=== PATIENT | male | born 1970 | race Caucasian/White ===

== ENCOUNTER → 2022-02-24 12:49 | Outpatient (BNVA) | payer OTHER, SELFPAY | PROVIDERS: PCP Nurse Practitioner Family; Visit Provider Nurse Practitioner Family | DX: M47.22 Other spondylosis with radiculopathy, cervical region (principal); M25.512 Pain in left shoulder; G90.512 Complex regional pain syndrome I of left upper limb; G89.4 Chronic pain syndrome | CPT/HCPCS: 99202 ==

== ENCOUNTER 2024-12-16 10:11 | Outpatient (AMB) | payer MEDICAID, SELFPAY ==
--- OUTSIDE RECORDS SUMMARY | 2024-12-16 10:41 | XMS_ITS | Encounter Summary ---
Author Organization [employer] Address [address] [facility] 7 [place] [address] Care Team Providers Care Mold Runner Name Role Phone Carmina Griffith NP Primary Care Provider Encounter Details Date Type Department Care Team ([facility] Contact Info) Description 03/01/2024 Telephone [facility] [address] [place] [address] Carmina Griffith, BEATRIZ [address] [place], [place] [id number] Social History Tobacco Use Types Packs/Day Years Used Date Smoking Tobacco: Never Passive Smoke Exposure: Never Smokeless Tobacco: Never Alcohol Use Standard Drinks/Week Comments Never 0 (1 standard drink = 0.6 oz pur e alcohol) Alcohol Answer Date Recorded How often do you have a drink containing alcohol ? 0 02/15/2024 How many drinks containing a lcohol do you have on a typical day when you are drinking? 0 02/15/2024 How often do you have six or more drinks on one occasion? 0 02/15/2024 Depression Answer Date Recorded Patient Health Questionnaire-9 Score 0 02/15/2024 Patient Health Questionnaire-9 Score 0 02/15/2024 Last PHQ-9: Questionnaire Data Not on file 0 02/15/2024 Housing Stability Answer Date Recorded What is your housing situation today? I have norberto mcmanus 02/15/[address] you li ve. Do you have problems with any of the following? None of the above 02/15/2024 Food Insecurity Answer Date Recorded Within the past 12 months, y ou worried that your food would run out before you got money to buy more: Never True 02/15/2024 Within the past 12 months,th e food you bought just didn't last and you didn't have enough money to get more: Never True 02/2024 Transportation Answer Date Recorded In the past 12 months, has l ack of transportation kept you from medical appts, meetings, work or from getting things needed for daily living? No 02/15/2024 Intimate Partner Violence Answer Date R ecorded Within the last year, have y ou been afraid of your partner or ex-partner? 2 02/15/2024 Within the last year, have y ou been humiliated or emotionally abused in other ways by your partner or ex-partner? 2 Within the last year, have y ou been kicked, hit, slapped, or otherwise physically hurt by your partner or ex-partner? 2 02/15/2024 Within the last year, have y ou been raped or forced to have any kind of sexual activity by your partner or ex-partner? 2 02/15/2024 Utilities Answer Date Recorded In the past 12 months, has t he [employer], [employer], oil or water [employer] threatened to shut off services in your home? No 02/15/2024 Depression Answer Date Recorded Patient Health Questionnaire-2 Score 0 02/15/2024 Internet Access Answer Date Recorded Internet Access Q1 Yes 02/15/2024 Internet Access Q2 Not on file 02/15/2024 Sex and Gender Information Value Date Recorded Sex Assigned at Male 05/04/2023 2:43 PM EST Legal Sex Male 2:34 PM EST Gender Identity Male 05/04/2023 2:43 PM EST Sexual Orientation Choose not to disclose 2022 2:43 PM EST documented as of this encounter Miscellaneous Notes * Telephone Encounter - Cassidy Batista LPN - 03/02/2024 11:04 AM EDT Spoke to pt about need for medication for anxiety. Pt stated he had no klonopin available to him. Pt would like script sent in he is leaving for [place] tomorrow, * Telephone Encounter - Carmina Griffith NP - 03/02/2024 9:58 AM EDT My understanding is that patient had been getting Clonazepam dispensed in his pill packs but was taking them out and not using them for a while. Please find out if he has any Clonazepam at home. Thiswould be an appropriate med to take in this circumstance. (The script has since been discontinued so he is not getting it in his subsequent packs) If he doesn't have any I will send him some. Please also find out when he is traveling. Thanks and let me know. * Telephone Encounter - Sonia Dai - 03/01/2024 4:04 PM EDT His grandfather and he must travel to [place] and it is causing him a lot of distress and anxiety. He would like a little something to help with this . Please advise. Patient states his blood pressure went very high as well when he got the news. Please advise patient if possible if something is sent to the pharmacy. documented in this encounter Plan of Treatment Upcoming Encounters Date Type Department Care Team (Late st Contact Info) Description 12/22/2024 4:20 PM EDT Telemedicine [facility] [address] [place] [phone] Carmina Griffith NP [address] [place] [phone] documented as of this encounter Visit Diagnoses Not on filedocumented in this encounter Additional Health Concerns Assessment Noted Time PHQ-9 Depression Total Score: 0 02/15/20 1:40 PM EDT documented as of this encounter Care Teams Mold Runner Relationship Specialty Start Date End Date Carmina Griffith NP [address] [place] [phone] PCP - General Family Medicine 02/15/24 documented as of this encounter
--- OUTSIDE RECORDS SUMMARY | 2024-12-16 10:41 | XMS_ITS | Patient Health Record ---
Author Organization [facility] Address [address] [place] [address] Care Team Providers Care Director Intelligence Analysis Programs Name Role Phone Garland Liu Unavailable [phone] Reason For Referral No Information Plan Of Treatment No Information
--- OUTSIDE RECORDS SUMMARY | 2024-12-16 10:41 | XMS_ITS | Clinical Summary ---
Author Organization [facility] Address [address] [address] Phone Care Team Providers Care Conference Specialist Name Role Phone Carmina Griffith NP Primary Care Provider [phone] Allergies Active Allergy Reactions Criticality Noted Date Comments Baclofen Palpitations Low 12/29/2023 Other Reaction(s): AMS Duloxetine 12/29/2023 Other Reaction(s): GI upset Egg-Derived Products Rash High 12/29/2023 Escitalopram Other (see comments) 12/29/2023 Other Reaction(s): lethargy Fish Allergy Rash High 09/15/2023 Other Reaction(s): breathing trouble Gabapentin Medium 12/29/2023 Other Reaction(s): ams, exacerbates depression Oxycodone Medium 12/29/2023 Other Reaction(s): urinary retention Tolerates short acting formulations Zolpidem Palpitations Medium 12/29/2023 Other Reaction(s): cognitive change Medications topiramate (TOPAMAX) 25 MG tablet Take 1 tablet by mouth 1 (one) time each day Active sertraline (ZOLOFT) 100 MG tablet Take 1 tablet by mouth 1 (one) time each day Active omeprazole (PriLOSEC) [address] capsule Take 1 capsule by mouth 1 (one) time each day Active nitroglycerin (NITROSTAT) 0.4 MG SL tablet as directed Activ e NIFEdipine XL (PROCARDIA XL) 90 MG 24 hr tablet Take 1 tablet by mouth 1 (one) time each day Active losartan (COZAAR) 100 MG tablet Take 1 tablet by mouth 1 (one) time each day Active chlorthalidone 25 MG tablet Take 1 tablet by mouth 1 (one) time each day 04/01/20 18 Active carvedilol (COREG) 25 MG tablet Take 12.5 mg by mouth in the morning and 12.5 mg in the evening. 02/05/20 18 Active atorvastatin (Lipitor) 80 MG tablet Take 1 tablet by mouth at bed time Active AMITRIPTYLINE HCL PO Take 40 mg by mouth 1 (one) time each day Active Jardiance 25 MG tablet Take by mouth every morning 08/27/19 24 Active fenofibrate (TRICOR) 145 MG tablet Take 145 mg by mouth 1 (one) time each day 08/27/19 24 Active Melatonin Maximum Strength 5 MG tablet Take 2 tablets by mouth every night 08/27/19 24 Active Aspirin Adult Low Dose 81 MG EC tablet Take 81 mg by mouth 1 (one) time each day 08/27/19 24 Active Januvia 100 MG tablet Take 100 mg by mouth 1 (one) time each day 08/27/19 24 Active hydrALAZINE 100 MG tablet Take 100 mg by mouth in the morning and 100 mg in the evening and 100 mg before bedtime. Active busPIRone (BUSPAR) 10 MG tablet Take 10 mg by mouth in the morning and 10 mg in the evening and 10 mg before bedtime. Active venlafaxine (EFFEXOR) 75 MG tablet Take 75 mg by mouth in the morning. Active lamoTRIgine (LaMICtal) 100 MG tablet Take 100 mg by mouth in the morning and 100 mg in the evening. Active oxybutynin XL (DITROPAN-XL) 10 MG 24 hr tablet Take 10 mg by mouth 1 (one) time each day Do not crush, chew, or split. Active clonazePAM (KlonoPIN) 1 MG tablet Take 1 mg by mouth in the morning and 1 mg at noon and 1 mg in the evening. Active spironolactone (Aldactone) 100 MG tablet Take 2 tablets (200 mg total) by mouth in the morning and 2 tablets (200 mg total) in the evening. 120 tablet 2 04/06/20 24 Active minoxidil (LONITEN) 10 MG tablet Take 0.5 tablets (5 mg total) by mouth 1 (one) time each day 11/23/19 25 Active doxazosin (CARDURA) 8 MG tablet Take 8 mg by mouth every night Active minoxidil (LONITEN) 10 MG tablet Take 1 tablet (10 mg total) by mouth 1 (one) time each day 90 tablet 3 12/29/19 24 025 Discontinued cloNIDine (CATAPRES) 0.1 MG tablet Take 4 tablets (0.4 mg total) by mouth in the morning and 4 tablets (0.4 mg total) at noon and 4 tablets (0.4 mg total) in the evening and 4 tablets (0.4 mg total) before bedtime. 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 Regressed on MRI (05/2013). Has had multiple presentations for left sided weakness, not felt consistent with left CVA per imaging. Visual impairment 11/16/2023 Tendinitis of shoulder region 11/16/2023 Spinal stenosis of cervical region 11/16/2023 Somatization disorder 11/16/2023 Severe major depression 11/16/2023 Rectal prolapse 11/16/2023 Obstructive sleep apnea syndrome 11/16/2023 Obese class I 11/16/2023 Mass of subcutaneous tissue of left forearm 11/06 Irritable bowel syndrome with constipation 11/15 Insomnia 11/16/2023 Hyperlipidemia 11/16/2023 History of cerebrovascular accident 11/16/2023 Gastroesophageal reflux disease 11/16/2023 Headache 11/16/2023 Fibromyalgia 11/16/2023 Epidermoid cyst 11/16/2023 Diabetes mellitus 11/16/2023 Complex regional pain syndrome of upper limb 03/2024 Overview (11/16/2023): per neurosurgery 04/2014 Chronic post-traumatic stress disorder Anxiety 11/16/2023 Hypertensive renal disease 03/19/2022 Hemiparesis 03/19/2022 Essential hypertension 03/19/2022 Stage 3b chronic kidney disease 03/19/2022 Resolved Problems Problem Noted Date Diagnosed Date Resolved Date Noncompliance with treatment <For other reason> 04/27/2022 01/01/2023 Cerebrovascular accident 03/19/2022 Encounters Date Type Department Care Team Description 11/22/2024 Office Communication [facility] [address] [phone] Kevin Villalobos MD 11/21/2024 Office Communication [facility] [address] [phone] Kevin Villalobos MD 11/19/2024 Office Communication [facility] [address] [phone] Kevin Villalobos MD 11/18/2024 10:00 AM EDT Office Visit [facility] [address] [address] Kevin Villalobos MD Stage 3a chronic kidney disease (HCC) (Primary Dx); Hypertension 10/14/2024 10:00 AM EDT Office Visit [facility] [address] [phone] Binh Jones MD Stage 3a chronic kidney disease (HCC) (Primary Dx); Hypertensive renal disease from Last 3 Months Immunizations Immunization Administration Dates Next Due Influenza (IM) Preservative Free 05/09/2022 Influenza TIV (IM) 03/22/2018 Pfizer SARS-COV-2 10/05/2020,09/14/2020 Pneumococcal Polysaccharide 11/07/2014 Tdap 05/28/2017 Family History Relation Status Comments Father Alive Mother Alive Social History Tobacco Use Types Packs/Day Years Used Date Smoking Tobacco: Never Smokeless Tobacco: Never Tobacco Cessation:Counseling Given: Not Answered Alcohol Use Standard Drinks/Week Comments No 0 (1 standard drink = 0.6 oz pur e alcohol) Sex and Gender Information Value Date Recorded Sex Assigned at Not on file Legal Sex Male 5:24 PM EST Gender Identity Not on file Sexual Orientation Not on file Last Filed Vital Signs Vital Sign Reading Time Taken Comments Blood Pressure 160/100 11/18/2024 10:01 AM EDT Pulse 94 11/18/2024 10:01 AM EDT Temperature - - Respiratory Rate - - Oxygen Saturation 98% 11/18/2024 10:01 AM EDT Inhaled Oxygen Concentration - - Weight 113 kg (248 lb 3.2 oz) 11/18/2024 10:01 A M EDT Height 185.4 cm (6' 1 ) 12/29/2018 12:00 PM EDT Body Mass Index 32.75 12/29/2018 12:00 PM EDT Plan of Treatment Upcoming Encounters Date Type Department Care Team (Late st Contact Info) Description 02/17/2025 10:30 AM EDT Office Visit [facility] [address] [phone] Kevin Villalobos MD [address] [phone] Health Maintenance Due Date Last Done Comments Hepatitis B Vaccine (1 of 3 - 19+ 3-dose series) 09/09/1991 Pneumococcal Vaccine: 50+ Ye ars (2 of 2 - PCV) 11/08/2015 11/07/2014 Colorectal Cancer Screening: Annual FOBT 2021 Colorectal Cancer Screening: Colonoscopy 2021 Colorectal Cancer Screening: Sigmoidoscopy 2021 Diabetes: Ophthalmology Exam 09/28/2023 Diabetes: Pedal Pulse Checked 09/28/2023 Diabetes: Sensory Foot Exam 09/28/2023 Diabetes: Visual Foot Exam 09/28/2023 Diabetes: Hemoglobin A1C 12/01/2024 025, 03/04/2022, 12/27/2018 Influenza Vaccine (#1) 2025 , 04/15/2021, 02/24/2019, Additional history exists Pneumococcal Vaccine: Peds ( 0 to 5 Years) and At-Risk Patients (6 to 49 Years) Discontinued 11/07/2014 Procedures Procedure Name Priority Date/Time Associated Diagnosis Comments ALT EXT LABS Routine 10/01/2024 EXT RESULT ENTRY Routine 03/04/2022 from Last 3 Months or Most Recently Relevant to Health Maintenance Results * (ABNORMAL) ALT EXT LABS (10/01/2024) WBC 8.4 3.3 - 10.0 10*3/ML Red Blood Cell Count 5.50 Hemoglobin 13.5 13.5 - 17.5 Hematocrit 43.9 41.0 - 53.0 Platelets 337 150 - 399 10*3/UL BUN 13 4 - 21 mg/dL Creatinine 1.42(A) 0.60 - 1.30 mg/dL Albumin 4.0 3.5 - 5.0 g/dL Calcium 8.9 8.7 - 10.7 mg/dL Sodium 141 137 - 147 Potassium 3.9 3.4 - 5.5 Chloride 112.0(A) 99.0 - 108.0 Bicarbonate (CO2) 22 22 - 30 mmol/L eGFR Non-Afr [place] 59 10/01/2024 us Historical Provider LAB BLOOD ORDERABLES Carina l Result * (ABNORMAL) EXT RESULT ENTRY (03/04/2022) WBC 6.0 3.3 - 10.0 10*3/ML Red Blood Cell Count 4.78 Hemoglobin 12.6(A) 13.5 - 17.5 Hematocrit 38.6(A) 41.0 - 53.0 Platelets 335 150 - 399 10*3/UL MCV 80.8(A) 82.0 - 108.0 Sodium 142 137 - 147 Potassium 4.1 3.4 - 5.5 Chloride 105.0 99.0 - 108.0 Carbon Dioxide 28 mmol/L Anion Gap 9 <=30 MMOL/L Glucose 161 60 - 200 BUN 14 4 - 21 mg/dL Creatinine 1.30 0.60 - 1.30 mg/dL Calcium 9.5 8.7 - 10.7 mg/dL eGFR Non-Afr [place] 66 Hemoglobin A1C 6.5(A) 4.0 - 6.0 Triglycerides 133 Cholesterol, Total 179 HDL 38 mg/dL LDL-Calculated 114 03/04/2022 [facility] Provider LAB BLOOD ORDERABLES Carina l Result from Last 3 Months or Most Recently Relevant to Health Maintenance Insurance Medicaid [place] Care Teams Conference Specialist Relationship Specialty Start Date End Date Carmina Griffith NP [address] [place] [address] PCP - General Nurse Practitioner 06/22/23
--- OUTSIDE RECORDS SUMMARY | 2024-12-16 10:41 | XMS_ITS | Clinical Summary ---
Author Organization [facility] Address [address] [place] [address] Phone Care Team Providers Care Dental Biller Name Role Phone NachoCarmina Skye HENDERSON Primary Care Provider [phone] Allergies Active Allergy Reactions Criticality Noted Date Comments Egg Rash High 09/01/2024 Nutritional Supplement-Fiber 09/01/2024 Fish Containing Products 05/28/2024 Gabapentin High 12/29/2023 Other Reaction(s): ams, exacerbates depression Morphine Hives 05/28/2024 Zolpidem Palpitations,Unknow n High 09/22/2022 Other Reaction(s): cognitive change Medications lamoTRIgine (LaMICtal) 100 mg tablet Take 1 tablet (100 mg total) by mouth 2 (two) times a day. 05/26/2024 Active Linzess 72 mcg capsule Take 1 capsule (72 mcg total) by mouth 1 (one) time each day. 05/04/2024 Active meclizine (ANTIVERT) 12.5 mg tablet Take 1 tablet (12.5 mg total) by mouth 3 (three) times a day if needed. 05/17/2024 Active metFORMIN (GLUCOPHAGE) 1,000 mg tablet Take 1 tablet (1,000 mg total) by mouth 2 (two) times a day with meals. Active oxyBUTYnin (DITROPAN) 5 mg tablet Take 1 tablet (5 mg total) by mouth 3 (three) times a day. 06/04/2023 Active tiZANidine (ZANAFLEX) 2 mg tablet Take 1 tablet (2 mg total) by mouth every 8 (eight) hours if needed. Active venlafaxine (EFFEXOR) 75 mg tablet Take 1 tablet (75 mg total) by mouth 1 (one) time each day. Active NIFEdipine XL (PROCARDIA XL) 30 mg 24 hr tablet Take 1 tablet (30 mg total) by mouth 1 (one) time each day before breakfast. Do not crush, chew, or split. 30 each 09/06/2024 Active aspirin 81 mg EC tablet Take 1 tablet (81 mg total) by mouth 1 (one) time each day. 30 each 09/06/2024 Active baclofen (LIORESAL) 10 mg tablet Take 1 tablet (10 mg total) by mouth 3 (three) times a day. 90 each 09/05/2024 Active carvediloL (COREG) 25 mg tablet Take 1 tablet (25 mg total) by mouth 2 (two) times a day. 60 each 09/05/2024 Active cloNIDine (CATAPRES) 0.2 mg tablet Take 1 tablet (0.2 mg total) by mouth if needed for high blood pressure. Take 1 tablet twice daily for SBP>180 60 each 09/05/2024 Active oxyCODONE (OXY-IR) 5 mg immediate release capsule Take 1 capsule (5 mg total) by mouth every 6 (six) hours if needed (Breakthroug h pain). Max Daily Amount: 20 mg 12 capsule 11/14/2024 Active Active Problems No known active problems Resolved Problems Problem Noted Date Diagnosed Date Resolved Date Hypertensive urgency 09/05/2024 025 Left-sided weakness 08/31/2024 09/06/19 25 Encounters Date Type Department Care Team Description 11/20/2024 10:56 PM EDT - 11/21/2024 5:[address] [facility] Emergency [address] [place] [phone] Right flank pain (Primary Dx) Discharge Disposition: Home or Self Care 11/14/2024 4:33 AM EDT - 11/14/2024 2:[address] [facility] Emergency [address] [place] [address] Right flank pain (Primary Dx) Discharge Disposition: Home or Self Care 10/29/2024 12:44 AM EDT - 10/29/2024 4:[address] [facility] Emergency [address] [place] [address] Discharge Disposition: Left Against Medical Advice 10/23/2024 12:57 AM EDT - 10/23/2024 5:44 AM EDT Emergency [facility] Emergency [address] [place] [phone] Reid Song MD Acute right flank pain (Primary Dx); Acute kidney injury ([facility] V24) Discharge Disposition: Home or Self Care 10/18/2024 9:48 PM EDT - 10/19/2024 7:10 AM EDT Emergency [facility] Emergency [address] [place] [address] Reid Song MD Acute right flank pain (Primary Dx); Hypertension secondary to other renal disorders Discharge Disposition: Home or Self Care 10/01/2024 1:04 PM EDT - 10/01/2024 6:45 PM EDT Emergency [facility] Emergency [address] [place] [phone] Ashlee Huerta DO Renal cell carcinoma of right kidney ([facility] V24, [facility] V28) (Primary Dx); Breakthrough pain; Secondary hypertension Discharge Disposition: Home or Self Care from Last 3 Months Surgical History Surgery Date Site/Laterality Comments LUMBAR SPINE SURGERY TURP / TRANSURETHRAL INCISION / DRAINAGE PROSTATE CARDIAC CATHETERIZATION Medical History Medical History Date Comments Hypertension Stroke (cerebrum) ([facility] V24, [facility] V28) Hypertension CKD (chronic kidney disease) Hyperaldosteronism ([facility] V24) Type 2 diabetes mellitus ([facility] V24, [facility] V 28) HLD (hyperlipidemia) Sleep apnea BPH (benign prostatic hyperplasia) Cervical spinal stenosis Social History Tobacco Use Types Packs/Day Years Used Date Smoking Tobacco: Never Smokeless Tobacco: Never Tobacco Cessation:Counseling Given: Not Answered Housing Instability Answer Date Recorde d Are you worried that in the next 2 months you may not have stable housing? No 09/01/2024 Food Access & Nutrition Answer Date Rec orded Do you have access to a vari ety of food including fruits and vegetables? No 09/01/2024 Access to Healthcare Answer Date Record ed Within the last 3 months, refugio bhandari many times did you visit the emergency department for your medical care? 2 09/01/2024 Health Literacy Answer Date Recorded How often do you need to hav e someone help you when you read instructions, pamphlets, or other written material from your doctor or pharmacy? Sometimes 09/01/2024 Caregiver: How often do you need to have someone help you when you read instructions, pamphlets, or other written material from your doctor or pharmacy? Not on file 09/01/2024 Financial Risk Answer Date Recorded How hard is it for you to pa y for the very basics like food, housing, medical care, and air conditioning / heating? Not very hard 09/01/2024 Transportation Answer Date Recorded Has the lack of transportati on kept you from meetings, work, or from getting things needed for daily living? No Has the lack of transportati on kept you from medical appointments or from getting medications? No 09/01/2024 Social Isolation Answer Date Recorded How often do you feel lonely or isolated from th ose around you? Rarely 09/01/2024 Food Risk Answer Date Recorded Within the past 12 months we worried whether our food would run out before we got money to buy more. Never true 09/01/2024 Within the past 12 months th e food we bought just didn't last and we didn't have money to get more. Never true 09/01/2024 Dependent Care Answer Date Recorded Do you need help finding or paying for care for your loved ones. For example, child care lead teacher or elderly care for an older adult? No 09/01/2024 Education Answer Date Recorded Do you think completing more education or training, like finishing a GED, going to college, or learning a trade, would be helpful for you? N/A 09/01/2024 Employment and Income Answer Date Recor ded During the last four weeks, have you been actively looking for work? No 09/01/2024 Living Situation Answer Date Recorded What is your living situation? 0 09/01/2024 Interpersonal Safety Answer Date Record ed Physical Abuse 09/01/2024 Verbal Abuse 09/01/2024 Sex and Gender Information Value Date Recorded Sex Assigned at Male 10/01/2024 1:27 PM EDT Legal Sex Male 3:32 PM EST Gender Identity Male 10/01/2024 1:27 PM EDT Sexual Orientation Straight 10/01/2024 1: 27 PM EDT Obstetrics History Last Filed Vital Signs Vital Sign Reading Time Taken Comments Blood Pressure 160/118 11/21/2024 5:04 AM EDT Pulse 86 11/21/2024 5:04 AM EDT Temperature 37.1 C (98.8 F) 11/21/2024 2:32 AM EDT Respiratory Rate 16 11/21/2024 5:04 AM EDT Oxygen Saturation 98% 11/21/2024 5:04 AM EDT Inhaled Oxygen Concentration - - Weight 113 kg (249 lb 11.2 oz) 11/20/2024 10:28 PM EDT Height 185.4 cm (6' 1 ) 11/20/2024 10:28 PM EDT Body Mass Index 32.94 11/20/2024 10:28 PM EDT Plan of Treatment Health Maintenance Due Date Last Done Comments Diabetes: Annual Foot Exam 1982 Diabetes: Annual Retina Eye Exam 1982 Hepatitis B Vaccines (1 of 3 - 19+ 3-dose series) 09/09/1991 Zoster Vaccines (1 of 2) 09/09/1991 Pneumococcal Vaccine: 50+ Years (2 of 2 - PCV) 11/08/2015 11/07/2014 COVID-19 Vaccine (3 - Pfizer risk series) 11/02/2020 10/05/2020, 09/14/2020 Colorectal Cancer Screening: Colonoscopy 05/07/2022 HIV Screening 05/07/2022 Hepatitis C Screening 05/07/2022 Diabetes: Annual Urine Albumin-Creatinine Ratio (uACR) 05/17/2024 Influenza Vaccine (#1) 2025 , 04/15/2021, 02/24/2019, Additional history exists Depression Screening 02/14/2025 02/15/2024 Diabetes: Blood Sugar Control Test (HGBA1C) 03/03/2025 08/31/2024 Social Influencers of Health Screening 09/01/2025 09/01/2024 Diabetes: Annual GFR (Glomerular Filtration Rate) 11/20/2025 11/20/2024, 11/14/2024, 10/29/2024, Additional history exists Hypertension/CHF/CAD Annual BMP Blood Test 11/20/2025 11/20/2024, 11/14/2024, 10/29/2024, Additional history exists DTaP,Tdap,and Td Vaccines (2 - Td or Tdap) 05/28/2027 05/28/2017 Cholesterol Screening (Lipid Panel) 09/01/2029 09/01/2024 HIB Vaccines Aged Out No longer eligi ble based on patient's age to complete this topic HPV Vaccines Aged Out No longer eligi ble based on patient's age to complete this topic Hepatitis A Vaccines Aged Out No long er eligible based on patient's age to complete this topic IPV Vaccines Aged Out No longer eligi ble based on patient's age to complete this topic MMR Vaccines Aged Out No longer eligi ble based on patient's age to complete this topic Meningococcal ACWY Vaccine Aged Out N o longer eligible based on patient's age to complete this topic Meningococcal B Vaccine Aged Out No l onger eligible based on patient's age to complete this topic RSV Immunization Patients Under 20 months Aged Out No longer eligible based on patient's age to complete this topic Varicella Vaccines Aged Out No longer eligible based on patient's age to complete this topic Procedures Procedure Name Priority Date/Time Associated Diagnosis Comments CBC WITH AUTO DIFFERENTIAL STAT 11/20/2024 10:31 PM EDT LIPASE STAT 11/20/2024 10:31 PM EDT COMPREHENSIVE METABOLIC PANEL STAT 11/20/2024 10:31 PM EDT CBC AND DIFFERENTIAL STAT 11/20/2024 10:31 PM EDT MARTINEZ URINE CULTURE TUBE STAT 11/20/2024 10:27 PM EDT URINALYSIS WITH REFLEX MICROSCOPIC AND CULTURE STAT 11/20/2024 10:27 PM EDT URINALYSIS WITH REFLEX MICROSCOPIC AND CULTURE STAT 11/20/2024 10:27 PM EDT MARTINEZ URINE CULTURE TUBE STAT 11/14/2024 7:51 AM EDT URINALYSIS WITH REFLEX MICROSCOPIC AND CULTURE STAT 11/14/2024 7:51 AM EDT URINALYSIS WITH REFLEX MICROSCOPIC AND CULTURE STAT 11/14/2024 7:[address] ABDOMEN PELVIS W CONTRAST STAT 11/14/2024 7:11 AM EDT CBC WITH AUTO DIFFERENTIAL STAT 11/14/2024 4:58 AM EDT COMPREHENSIVE METABOLIC PANEL STAT 11/14/2024 4:58 AM EDT CBC AND DIFFERENTIAL STAT 11/14/2024 4:58 AM EDT CBC WITH AUTO DIFFERENTIAL STAT 10/29/2024 1:00 AM EDT BASIC METABOLIC PANEL STAT 10/29/2024 1:00 AM EDT CBC AND DIFFERENTIAL STAT 10/29/2024 1:00 AM EDT ECG ANNOTATED 10/25/2024 CT ABDOMEN PELVIS W CONTRAST STAT 10/23/2024 2:15 AM EDT TYPE AND SCREEN STAT 10/23/2024 1:13 AM EDT LACTATE STAT 10/23/2024 1:13 AM EDT COMPREHENSIVE METABOLIC PANEL STAT 10/23/2024 1:13 AM EDT CBC WITH AUTO DIFFERENTIAL STAT 10/23/2024 1:13 AM EDT MAGNESIUM STAT 10/23/2024 1:13 AM EDT CBC AND DIFFERENTIAL STAT 10/23/2024 1:13 AM EDT POCT GLUCOSE BLOOD Routine 10/23/2024 1: 02 AM EDT ECG 12-LEAD STAT 10/23/2024 12:48 AM EDT ECG ANNOTATED 10/20/2024 LACTATE STAT 10/19/2024 4:[address] ABDOMEN PELVIS WO CONTRAST STAT 10/18/2024 11:47 PM EDT TROPONIN I HIGH SENSITIVITY STAT 10/18/2024 10:46 PM EDT XR CHEST 2 VIEWS STAT 10/18/2024 10:0 7 PM EDT MARTINEZ URINE CULTURE TUBE STAT 10/18/2024 10:02 PM EDT URINALYSIS WITH REFLEX MICROSCOPIC AND CULTURE STAT 10/18/2024 10:02 PM EDT URINALYSIS WITH REFLEX MICROSCOPIC AND CULTURE STAT 10/18/2024 10:02 PM EDT CBC WITH AUTO DIFFERENTIAL STAT 10/18/2024 9:44 PM EDT TROPONIN I HIGH SENSITIVITY STAT 10/18/2024 9:44 PM EDT MAGNESIUM STAT 10/18/2024 9:44 PM EDT BASIC METABOLIC PANEL STAT 10/18/2024 9:44 PM EDT CBC AND DIFFERENTIAL STAT 10/18/2024 9:44 PM EDT ECG 12-LEAD STAT 10/18/2024 9:[address] ABDOMEN PELVIS W CONTRAST STAT 10/01/2024 3:[address] HEAD WO CONTRAST STAT 10/01/2024 3 :47 PM EDT MARTINEZ URINE CULTURE TUBE STAT 10/01/2024 1:25 PM EDT URINALYSIS WITH REFLEX MICROSCOPIC AND CULTURE STAT 10/01/2024 1:25 PM EDT URINALYSIS WITH REFLEX MICROSCOPIC AND CULTURE STAT 10/01/2024 1:25 PM EDT CBC WITH AUTO DIFFERENTIAL STAT 10/01/2024 12:59 PM EDT COMPREHENSIVE METABOLIC PANEL STAT 10/01/2024 12:59 PM EDT CBC AND DIFFERENTIAL STAT 10/01/2024 12:59 PM EDT LIPID PANEL WITH REFLEX TO DIRECT LDL Routine 09/01/2024 5:39 AM EDT HEMOGLOBIN A1C Add-On 08/31/2024 2:54 PM EDT from Last 3 Months or Most Recently Relevant to Health Maintenance Results * (ABNORMAL) CBC auto differential (11/20/2024 10:31 PM EDT) Only the most recent of6 resultswithin the time period is included. WBC 7.5 4.8 - 10.8 K/mcL LAB HEMETOLOGY METHOD 11/20/2024 10:46 PM EDT [facility] RBC 5.90(H) 4.50 - 5.50 M/mcL LAB HEMETOLOGY METHOD 11/20/2024 10:46 PM EDT [facility] Hemoglobin 14.5 13.5 - 17.5 g/dL LAB HEMETOLOGY METHOD 11/20/2024 10:46 PM EDT [facility] Hematocrit 46.5 42.0 - 54.0 % LAB HEMETOLOGY METHOD 11/20/2024 10:46 PM EDT [facility] MCV 78.3(L) 79.0 - 98.0 FL LAB HEMETOLOGY METHOD 11/20/2024 10:46 PM EDT [facility] MCH 24.4(L) 27.0 - 32.0 pcg LAB HEMETOLOGY METHOD 11/20/2024 10:46 PM EDT [facility] MCHC 31.2(L) 32.0 - 37.0 g/dL LAB HEMETOLOGY METHOD 11/20/2024 10:46 PM [facility] RDW 16.2(H) 11.0 - 15.0 % LAB HEMETOLOGY METHOD 11/20/2024 10:46 PM [facility] Platelets 359 130 - 400 K/mcL LAB HEMETOLOGY METHOD 11/20/2024 10:46 PM [facility] MPV 9.5 7.0 - 11.0 FL LAB HEMETOLOGY METHOD 11/20/2024 10:46 PM [facility] NRBC 0.0 <1.0 % LAB HEMETOLOGY METHOD 11/20/2024 10:46 PM [facility] NRBC Absolute 0.00 <0.10 K/mcL LAB HEMETOLOGY METHOD 11/20/2024 10:46 PM [facility] Neutrophils Relative 55.4 % LAB HEMETOLOGY METHOD 11/20/2024 10:46 PM [facility] Lymphocytes Relative 31.6 % LAB HEMETOLOGY METHOD 11/20/2024 10:46 PM [facility] Monocytes Relative 9.0 % LAB HEMETOLOGY METHOD 11/20/2024 10:46 PM [facility] Eosinophils Relative 2.9 % LAB HEMETOLOGY METHOD 11/20/2024 10:46 PM [facility] Basophils Relative 0.7 % LAB HEMETOLOGY METHOD 11/20/2024 10:46 PM [facility] Immature Granulocytes Relative 0.4 % LAB HEMETOLOGY METHOD 11/20/2024 10:46 PM [facility] Neutrophils Absolute 4.14 1.50 - 7.00 K/mcL LAB HEMETOLOGY METHOD 11/20/2024 10:46 PM [facility] Lymphocytes Absolute 2.36 1.00 - 5.00 K/mcL LAB HEMETOLOGY METHOD 11/20/2024 10:46 PM EDT [facility] Monocytes Absolute 0.67 0.20 - 1.00 K/[facility] LAB HEMETOLOGY METHOD 11/20/2024 10:46 PM EDT [facility] Eosinophils Absolute 0.22 0.00 - 0.50 K/[facility] LAB HEMETOLOGY METHOD 11/20/2024 10:46 PM EDT [facility] Basophils Absolute 0.05 0.00 - 0.20 K/[facility] LAB HEMETOLOGY METHOD 11/20/2024 10:46 PM EDT [facility] Immature Granulocytes Absolute 0.03 0.00 - 0.03 K/[facility] LAB HEMETOLOGY METHOD 11/20/2024 10:46 PM EDT [facility] Blood Venous blood specimen / Unknown Venipuncture / Unknown 11/20/2024 10:31 PM EDT 11/20/2024 10:38 PM EDT us John Garay MD LAB BLOOD ORDERABLES Final Resu lt Performing Organization Address City/[facility]/ZIP Co de Phone Number [facility] [address] [place] [address], * Lipase (11/20/2024 10:31 PM EDT) Lipase 34 13 - 75 unit/L LAB CHEMISTRY METHOD 11/20/2024 11:25 PM EDT [facility] Blood Venous blood specimen / Unknown Venipuncture / Unknown 11/20/2024 10:31 PM EDT 11/20/2024 10:38 PM EDT us John Garay MD LAB BLOOD ORDERABLES Final Resu lt [facility] [address] [place] [address], [place] [phone] * (ABNORMAL) Comprehensive metabolic panel (11/20/2024 10:31 PM EDT) Only the most recent of4 resultswithin the time period is included. Sodium 139 133 - 145 mmol/L LAB CHEMISTRY METHOD 11/20/2024 11:07 PM [facility] Potassium 3.6 3.5 - 5.5 mmol/L LAB CHEMISTRY METHOD 11/20/2024 11:07 PM [facility] Chloride 110 96 - 110 mmol/L LAB CHEMISTRY METHOD 11/20/2024 11:07 PM [facility] CO2 22 21 - 32 mmol/L LAB CHEMISTRY METHOD 11/20/2024 11:07 PM [facility] Anion Gap 7 3 - 11 LAB CHEMISTRY METHOD 11/20/2024 11:07 PM [facility] Glucose 186(H) 70 - 100 mg/dL LAB CHEMISTRY METHOD 11/20/2024 11:07 PM [facility] BUN 13 5 - 25 mg/dL LAB CHEMISTRY METHOD 11/20/2024 11:07 PM [facility] Creatinine 1.73(H) 0.70 - 1.30 mg/dL LAB CHEMISTRY METHOD 11/20/2024 11:07 PM [facility] eGFR 47(L) >=60 mL/min/1. 73m2 LAB CHEMISTRY METHOD 11/20/2024 11:07 PM [facility] Comment:Calculation based on the Chronic Kidney Disease Epidemiology Collaboration (CKD-EPI) equation refit without adjustment for race. BUN/Creatinine Ratio 7.5 LAB CHEMISTRY METHOD 11/20/2024 11:07 PM [facility] Calcium 9.2 8.5 - 10.5 mg/dL LAB CHEMISTRY METHOD 11/20/2024 11:07 PM [facility] AST (SGOT) 16 10 - 42 unit/L LAB CHEMISTRY METHOD 11/20/2024 11:07 PM EDT [facility] ALT (SGPT) 24 10 - 60 unit/L LAB CHEMISTRY METHOD 11/20/2024 11:07 PM EDT [facility] Alkaline Phosphatase 71 42 - 121 unit/L LAB CHEMISTRY METHOD 11/20[facility]24 [facility] Total Protein 7.2 6.0 - 8.0 g/dL LAB CHEMISTRY METHOD 11/20/2024 11:07 PM EDT [facility] Albumin 4.0 3.2 - 5.0 g/dL LAB CHEMISTRY METHOD 11/20/2024 11:07 PM EDT [facility] Total Bilirubin 0.4 0.0 - 1.4 mg/dL LAB CHEMISTRY METHOD 11/20/2024 11:07 PM [facility] Blood Venous blood specimen / Unknown Venipuncture / Unknown 11/20/2024 10:31 PM EDT 11/20/2024 10:38 PM EDT us John Garay MD LAB BLOOD ORDERABLES Final Resu lt [facility] [address] [place] [address], * (ABNORMAL) Urinalysis with reflex microscopic and culture (11/20/2024 10:27 PM EDT) Only the most recent of4 resultswithin the time period is included. Specific [place] Urine 1.034(H) 1.003 - 1.030 LAB URINALYSIS - AUTOMATED METHOD 11/20/2024 10:49 PM T [facility] pH, Urine 6.5 5.0 - 8.0 pH LAB URINALYSIS - AUTOMATED METHOD 11/20/2024 10:49 PM [facility] Leukocytes, Urine Negative Negative LAB URINALYSIS - AUTOMATED METHOD 11/20/2024 10:49 PM [facility] Nitrite, Urine Negative Negative LAB URINALYSIS - AUTOMATED METHOD 11/20/2024 10:49 PM [facility] Protein, Urine 30(A) <=Trace mg/dL LAB URINALYSIS - AUTOMATED METHOD 11/20/2024 10:49 PM [facility] Glucose, Urine >=1000(A) Negative mg/dL LAB URINALYSIS - AUTOMATED METHOD 11/20/2024 10:49 PM [facility] Ketones, Urine Negative Negative mg/dL LAB URINALYSIS - AUTOMATED METHOD 11/20/2024 10:49 PM [facility] Urobilinogen , Urine 1.0 0.2 - 1.0 mg/dL LAB URINALYSIS - AUTOMATED METHOD 11/20/2024 10:49 PM [facility] Bilirubin, Urine Negative Negative LAB URINALYSIS - AUTOMATED METHOD 11/20/2024 10:49 PM [facility] Blood, Urine Negative Negative LAB URINALYSIS - AUTOMATED METHOD 11/20/2024 10:49 PM [facility] RBC, Urine 0.7 0 - 4 /HPF LAB URINALYSIS - AUTOMATED METHOD 11/20/2024 10:49 PM [facility] WBC, Urine 0.1 0 - 4 /HPF LAB URINALYSIS - AUTOMATED METHOD 11/20/2024 10:49 PM [facility] Squamous Epithelial, Urine 22 0 - 60 /LPF LAB URINALYSIS - AUTOMATED METHOD 11/20/2024 10:49 PM [facility] Bacteria, Urine Negative Negative /HPF LAB URINALYSIS - AUTOMATED METHOD 11/20/2024 10:49 PM [facility] Hyaline Casts, Urine 27.3(H) 0 - 3 /LPF LAB URINALYSIS - AUTOMATED METHOD 11/20/2024 10:49 PM [facility] Urine Urine specimen obtained by clean catch procedure / Unknown Non-blood Collection / Unknown 11/20/2024 10:27 PM EDT 11/20/2024 10:38 PM EDT us John Garay MD LAB URINE ORDERABLES Final Resu lt Performing Organization Address [facility]/ZIP Co de Phone Number [facility] [address] [place] [address], [place] [phone] * Martinez urine culture tube (11/20/2024 10:27 PM EDT) Only the most recent of4 resultswithin the time period is included. Extra Tube Hold for add-ons. 11/21/2024 11:01 AM EDT [facility] Comment:Auto resulted. Urine Urine specimen obtained by clean catch procedure / Unknown Non-blood Collection / Unknown 11/20/2024 10:27 PM EDT 11/20/2024 10:38 PM EDT us John Garay MD LAB URINE ORDERABLES Final Resu lt Performing Organization Address [facility] Co de Phone Number [facility] [address] [place] [address], [place] [phone] * CT Abdomen Pelvis w Contrast (11/14/2024 7:11 AM EDT) Only the most recent of3 resultswithin the time period is included. Anatomical Region Laterality Modality Body Computed Tomogra phy 11/14/2024 8:00 AM EDT Impressions 11/14/2024 8:20 AM EDT 1. No acute findings. 2. Punctate nonobstructing left upper pole renal calculus. 3. Bilateral low-attenuation renal cortical lesions. One lesion, exophytic from the medial interpolar left kidney, measures above fluid attenuation and it is unclear whether this represents a hemorrhagic cyst or solid lesion. The former is favored given stability over several prior exams. This may be amenable to further characterization with ultrasound. -------- FINAL REPORT -------- Dictated By: Pavan Levine Dictated Date: 11/14/2024 08:00 ET Assigned Physician: Pavna Levine Reviewed and Electronically Signed By: Pavan Levine Signed Date: 11/14/2024 08:20 ET Workstation ID: [id number] Transcribed By: Self Edit Transcribed Date: 11/14/2024 08:12 ET Narrative 11/14/2024 8:20 AM EDT PROCEDURE: Contrast enhanced CT of the abdomen and pelvis. HISTORY: R flank pain, RCC. COMPARISON: 10/23/2024. TECHNIQUE: Contrast-enhanced CT of the abdomen and pelvis with coronal and sagittal reformats. IV contrast dose: 90 mL [id number]. Dose length product: 1559 mGy-cm. FINDINGS: Lung bases: Normal. Cardiac: Moderate cardiomegaly. Stable trace pericardial fluid. Liver: Small capsular calcification along the posterior right lobe. Portal veins are patent. Biliary: Normal gallbladder and biliary tree. Pancreas: Normal. Spleen: Normal. Adrenal glands: Stable 12 mm right adrenal nodule. Kidneys: Punctate nonobstructing calculus in the upper pole of the left kidney. Bilateral low-attenuation renal cortical lesions which are likely cysts. Stable 16 mm lesion exophytic from the medial interpolar right kidney which measures 60 Hounsfield units. Unclear whether this represents a solid lesion or a hemorrhagic cyst. Normal appearance of the ureters. Retroperitoneum: No mass or adenopathy. Abdominal vasculature: Minimal atherosclerotic calcifications. Bowel/mesentery: No obstruction or adenopathy. No mass or ascites. Abdominal wall: Small calcified granuloma in the left gluteal subcutaneous fat. Minimal fat-containing paraumbilical hernia. Pelvic nodes: No adenopathy. Pelvic organs: Normal. Bones: Degenerative changes of the spine. There is an interspinous device at L4-5. Mild degenerative changes of the hips. Procedure Note Pavan Levine MD - 11/14/2024 PROCEDURE: Contrast enhanced CT of the abdomen and pelvis. HISTORY: R flank pain, RCC. COMPARISON: 10/23/2024. TECHNIQUE: Contrast-enhanced CT of the abdomen and pelvis with coronal andsagittal reformats. IV contrast dose: 90 mL [id number]. Dose length product: 1559 mGy-cm. FINDINGS: Lung bases: Normal. Cardiac: Moderate cardiomegaly. Stable trace pericardial fluid. Liver: Small capsular calcification along the posterior right lobe.Portal veins are patent. Biliary: Normal gallbladder and biliary tree. Pancreas: Normal. Spleen: Normal. Adrenal glands: Stable 12 mm right adrenal nodule. Kidneys: Punctate nonobstructing calculus in the upper pole of the leftkidney. Bilateral low-attenuation renal cortical lesions which are likelycysts. Stable 16 mm lesion exophytic from the medial interpolar rightkidney which measures 60 Hounsfield units. Unclear whether thisrepresents a solid lesion or a hemorrhagic cyst. Normal appearance of theureters. Retroperitoneum: No mass or adenopathy. Abdominal vasculature: Minimal atherosclerotic calcifications. Bowel/mesentery: No obstruction or adenopathy. No mass or ascites. Abdominal wall: Small calcified granuloma in the left gluteal subcutaneousfat. Minimal fat-containing paraumbilical hernia. Pelvic nodes: No adenopathy. Pelvic organs: Normal. Bones: Degenerative changes of the spine. There is an interspinous deviceat L4- 5. Mild degenerative changes of the hips. IMPRESSION: 1. No acute findings. 2. Punctate nonobstructing left upper pole renal calculus. 3. Bilateral low-attenuation renal cortical lesions. One lesion,exophytic from the medial interpolar left kidney, measures above fluidattenuation and it is unclear whether this represents a hemorrhagic cystor solid lesion. The former is favored given stability over several priorexams. This may be amenable to further characterization withultrasound. -------- FINAL REPORT -------- Dictated By: Pavan Levine Dictated Date: 11/14/2024 08:00 ET Assigned Physician: Pavan Levine Reviewed and Electronically Signed By: Pavan Levine Signed Date: 11/14/2024 08:20 ET Workstation ID: [id number] Transcribed By: Self Edit Transcribed Date: 11/14/2024 08:[address] PROCEDURES Final Result * (ABNORMAL) Basic metabolic panel (10/29/2024 1:00 AM EDT) Only the most recent of2 resultswithin the time period is included. Sodium 145 133 - 145 mmol/L LAB CHEMISTRY METHOD 10/29/2024 1:43 AM [facility] Potassium 3.6 3.5 - 5.5 mmol/L LAB CHEMISTRY METHOD 10/29/2024 1:43 AM [facility] Chloride 115(H) 96 - 110 mmol/L LAB CHEMISTRY METHOD 10/29/2024 1:43 AM [facility] CO2 22 21 - 32 mmol/L LAB CHEMISTRY METHOD 10/29/2024 1:43 AM [facility] Anion Gap 8 3 - 11 LAB CHEMISTRY METHOD 10/29/2024 1:43 AM [facility] Glucose 107(H) 70 - 100 mg/dL LAB CHEMISTRY METHOD 10/29/2024 1:43 AM [facility] BUN 16 5 - 25 mg/dL LAB CHEMISTRY METHOD 10/29/2024 1:43 AM [facility] Creatinine 1.63(H) 0.70 - 1.30 mg/dL LAB CHEMISTRY METHOD 10/29/2024 1:43 AM [facility] eGFR 50(L) >=60 mL/min/1. 73m2 LAB CHEMISTRY METHOD 10/29/2024 1:43 AM [facility] Comment:Calculation based on the Chronic Kidney Disease Epidemiology Collaboration (CKD-EPI) equation refit without adjustment for race. BUN/Creatinine Ratio 9.8 LAB CHEMISTRY METHOD 10/29/2024 1:43 AM [facility] Calcium 9.1 8.5 - 10.5 mg/dL LAB CHEMISTRY METHOD 10/29/2024 1:43 AM [facility] Blood Venous blood specimen / Unknown Venipuncture / Unknown 10/29/2024 1:00 AM EDT 10/29/2024 1:05 AM EDT Cheryl Fountain MD LAB BLOOD ORDERABLES Fin al Result [facility] [address] [place] [address], [place] [phone] * ECG-Annotated (10/25/2024) Only the most recent of2 resultswithin the time period is included. Provider Onbase ECG ORDERABLES Final Result * Type and Screen (10/23/2024 1:13 AM EDT) ABO Group O 10/23/2024 2:29 AM EDT [facility] Rh Type Positive 10/23/2024 2:29 AM EDT [facility] Antibody Screen Negative 10/23/2024 2:29 AM EDT [facility] Blood Venous blood specimen / Unknown Venipuncture / Unknown 10/23/2024 1:13 AM EDT 10/23/2024 1:27 AM EDT us Reid Song MD LAB BLOOD BANK TEST ORDERABLES Final Result Performing Organization Address City/[facility]/ZIP Co de Phone Number [facility] [address] [place] [address], [place] [phone] * Magnesium (10/23/2024 1:13 AM EDT) Only the most recent of2 resultswithin the time period is included. Magnesium 1.9 1.9 - 2.6 mg/dL LAB CHEMISTRY METHOD 10/23/2024 1:50 AM EDT [facility] Blood Venous blood specimen / Unknown Venipuncture / Unknown 10/23/2024 1:13 AM EDT 10/23/2024 1:27 AM EDT us Reid Song MD LAB BLOOD ORDERABLES Final Resu lt Performing Organization Address [facility] Co de Phone Number [facility] [address] [place] [address], [place] [phone] * Lactate (10/23/2024 1:13 AM EDT) Only the most recent of2 resultswithin the time period is included. [facility] Lactate 1.4 0.4 - 2.0 mmol/L LAB CHEMISTRY METHOD 10/23/2024 1:50 AM EDT [facility] Blood Venous blood specimen / Unknown Venipuncture / Unknown 10/23/2024 1:13 AM EDT 10/23/2024 1:27 AM EDT us Reid Song MD LAB BLOOD ORDERABLES Final Resu lt Performing Organization Address [facility] [[email or web address]] de Phone Number [facility] [address] [place] [address], [place] [phone] * (ABNORMAL) POCT Glucose, blood (10/23/2024 1:02 AM EDT) [facility] Glucose POCT 142(H) 70 - 100 mg/dL 10/23/2024 1:03 AM EDT [facility] Blood Capillary blood specimen / Unknown 10/23/2024 1:02 AM EDT 10/23/2024 1:04 AM EDT us Reid Song MD LAB POINT OF CARE TE ST DOCKED DEVICE UNSOLICITED RESULTS Final Result Performing Organization Address [facility] Co de Phone Number [facility] [address] [place] [address], [place] [phone] * ECG 12 lead (10/23/2024 12:48 AM EDT) Only the most recent of2 resultswithin the time period is included. [facility] Ventricular Rate ECG 119 BPM GEMUSE Atrial Rate 119 BPM GEMUSE P-R Interval 158 ms GEMUSE QRS Duration 88 ms GEMUSE Q-T Interval 332 ms GEMUSE QTc 467 ms GEMUSE P Wave Anna 40 degrees GEMUSE R Anna -51 degrees GEMUSE T Anna 21 degrees GEMUSE ECG Interpretation Sinus tachycardia Possible Left atrial enlargement Left anterior fascicular block Septal infarct , age undetermined Abnormal ECG When compared with ECG of 18-OCT-2024 21:37, ST now depressed in Lateral leads Confirmed by REAL TA ([id number]) on 10/23/2024 8:50:02 PM GEMUSE 10/23/2024 12:4 8 AM EDT 10/23/2024 8:50 PM EDT us Scot Pamela Song MD ECG ORDERABLES Final Result GEMUSE * CT Abdomen Pelvis wo Contrast (10/18/2024 11:47 PM EDT) Anatomical Region Laterality Modality Body Computed Tomogra phy 10/19/2024 12:3 6 AM EDT Impressions 10/19/2024 12:36 AM EDT 1. No urolithiasis or hydronephrosis. 2. Right mid medial renal nodule is technically indeterminate. Slowly growing since 2022. Although a proteinaceous cyst is favored, this can be further clarified with nonemergent ultrasound. This document has been electronically signed by: Lexie Duarte MD on 10/19/2024 00:36:55 Narrative 10/19/2024 12:36 AM EDT INDICATION: Flank pain, kidney stone suspected CT abdomen and pelvis without contrast Comparison: CT - CT ABD PEL WO CONTRAST - 08/28/24 00:[address] - CT CHEST ABD PEL W CONTRAST - 05/28/24 19:[address]/SD/SR - ABDOMEN AND PELVIS C- CT - 02/17/23 18:34 EDT Findings: No consolidation or effusion. Heart size at the upper limits. No pericardial effusion. Benign right adrenal adenoma 14 mm involving the medial limb. There are a few small bilateral renal cysts. Indeterminate nodule right mid medial kidney 13 mm image 88. Similar to prior. Gallbladder and solid organs otherwise unremarkable. No urolithiasis. No bowel obstruction, pneumoperitoneum, or pneumatosis. Moderate stool. The appendix is not identified. Mild distal colonic diverticulosis without diverticulitis. Interspinous stabilization hardware at the L4-L5 level. No apparent hardware complications. No acute fractures. Procedure Note Lexie Duarte MD - 10/19/2024 INDICATION: Flank pain, kidney stone suspected CT abdomen and pelvis without contrast Comparison: CT - CT ABD PEL WO CONTRAST - 08/28/24 00:[address] - CT CHEST ABD PEL W CONTRAST - 05/28/24 19:[address]/SD/SR - ABDOMEN AND PELVIS C- CT - 02/17/23 18:34 EDT Findings: No consolidation or effusion. Heart size at the upper limits. No pericardial effusion. Benign right adrenal adenoma 14 mm involving the medial limb. There are a few small bilateral renal cysts. Indeterminate nodule right mid medial kidney 13 mm image 88. Similar to prior. Gallbladder and solid organs otherwise unremarkable. No urolithiasis. No bowel obstruction, pneumoperitoneum, or pneumatosis. Moderate stool. The appendix is not identified. Mild distal colonic diverticulosis without diverticulitis. Interspinous stabilization hardware at the L4-L5 level. No apparent hardware complications. No acute fractures. IMPRESSION: 1. No urolithiasis or hydronephrosis. 2. Right mid medial renal nodule is technically indeterminate. Slowly growing since 2022. Although a proteinaceous cyst is favored, this canbe further clarified with nonemergent ultrasound. This document has been electronically signed by: Lexie Cantu MD on 10/19/2024 00:36:55 Reid Song MD IM CT PROCEDURES Final Result * Troponin I high sensitivity (10/18/2024 10:46 PM EDT) Only the most recent of2 resultswithin the time period is included. High Sensitivity Troponin I 23 <=79 ng/L LAB CHEMISTRY METHOD 10/18/2024 11:29 PM EDT [facility] Blood Venous blood specimen / Unknown Venipuncture / Unknown 10/18/2024 10:46 PM EDT 10/18/2024 11:05 PM EDT Narrative [facility]) [facility] - 10/18/2024 11:29 PM EDT High levels of biotin in samples may falsely decrease hsTroponin values. Use caution when interpreting hsTroponin results in patients taking biotin who exhibit renal impairment (eGFR <60) or in patients taking more than 20 mg/day of biotin. us Reid Song MD LAB BLOOD ORDERABLES Final Resu lt [facility] ([facility]) [facility] [address] [place] [address], [place] [phone] * XR Chest 2 Views (10/18/2024 10:07 PM EDT) Anatomical Region Laterality Modality Body Radiographic Angela ging 10/19/2024 7:55 AM EDT Impressions 10/19/2024 7:57 AM EDT No acute pulmonary disease. Mild cardiomegaly, without significant change since 08/31/2024. Code 20394 -------- FINAL REPORT -------- Dictated By: Douglas Ordoñez Dictated Date: 10/19/2024 07:55 ET Assigned Physician: Douglas Ordoñez Reviewed and Electronically Signed By: Douglas Ordoñez Signed Date: 10/19/2024 07:57 ET Workstation ID: [id number] Transcribed By: Self Edit Transcribed Date: 10/19/2024 07:55 ET Narrative 10/19/2024 7:57 AM EDT HISTORY: The patient is a 54-year-old male with chest pain. FINDINGS: PA and lateral radiographs of the chest demonstrate normal appearance of the bony structures. The cardiac silhouette remains mildly enlarged with a cardiothoracic ratio of 0.54, similar in appearance to the prior study performed 08/31/2024. The mediastinal contour is within normal limits. The lungs and costophrenic angles are clear. Procedure Note Douglas Ordoñez MD - 10/19/2024 HISTORY: The patient is a 54-year-old male with chest pain. FINDINGS: PA and lateral radiographs of the chest demonstrate normalappearance of the bony structures. The cardiac silhouette remains mildlyenlarged with a cardiothoracic ratio of 0.54, similar in appearance to theprior study performed 08/31/2024. The mediastinal contour is within normallimits. The lungs and costophrenic angles are clear. IMPRESSION: No acute pulmonary disease. Mild cardiomegaly, without significant changesince 08/31/2024. Code 73664 -------- FINAL REPORT -------- Dictated By: Douglas Ordoñez Dictated Date: 10/19/2024 07:55 ET Assigned Physician: Douglas Ordoñez Reviewed and Electronically Signed By: Douglas Ordoñez Signed Date: 10/19/2024 07:57 ET Workstation ID: [id number] Transcribed By: Self Edit Transcribed Date: 10/19/2024 07:55 ET us Scot Pamela Song MD IMG XR PROCEDURES Final Result * CT Head wo Contrast (10/01/2024 3:47 PM EDT) Anatomical Region Laterality Modality Head and Neck Computed Tomogra phy 10/01/2024 4:04 PM EDT Impressions 10/01/2024 4:19 PM EDT No acute intracranial abnormality. -------- FINAL REPORT -------- Dictated By: RAGHAVENDRA CISNEROS Dictated Date: 10/01/2024 16:04 ET Assigned Physician: RAGHAVENDRA CISNEROS Reviewed and Electronically Signed By: RAGHAVENDRA CISNEROS Signed Date: 10/01/2024 16:19 ET Workstation ID: [id number] Transcribed By: Self Edit Transcribed Date: 10/01/2024 16:07 ET Narrative 10/01/2024 4:19 PM EDT PROCEDURE: HEAD CT INDICATION: Headache TECHNIQUE: CT of the head without intravenous contrast. Multiplanar reformats. The examination was performed utilizing dose reduction techniques. Total DLP 901 COMPARISON: 08/31/[address] and MRI FINDINGS: No acute territorial infarct, mass effect, or intracranial hemorrhage. Unchanged small arachnoid cyst in the left middle cranial fossa. Unchanged hyperdensity in the left anterior insula, likely a small benign cavernous malformation. Mild scattered periventricular and subcortical white matter hypodensities are nonspecific but most likely related to chronic small vessel ischemic change. Ventricles, sulci, and cisterns are normal in size and configuration. No hydrocephalus or volume loss. Visualized paranasal sinuses and mastoid air cells are clear. No scalp hematoma or skull fracture. Procedure Note Raghavendra Cisneros MD - 10/01/2024 PROCEDURE: HEAD CT INDICATION: Headache TECHNIQUE: CT of the head without intravenous contrast. Multiplanarreformats. The examination was performed utilizing dose reductiontechniques. Total DLP 901 COMPARISON: 08/31/[address] and MRI FINDINGS: No acute territorial infarct, mass effect, or intracranial hemorrhage.Unchanged small arachnoid cyst in the left middle cranial fossa.Unchanged hyperdensity in the left anterior insula, likely a small benigncavernous malformation. Mild scattered periventricular and subcortical white matter hypodensitiesare nonspecific but most likely related to chronic small vessel ischemicchange. Ventricles, sulci, and cisterns are normal in size and configuration. Nohydrocephalus or volume loss. Visualized paranasal sinuses and mastoid air cells are clear. No scalp hematoma or skull fracture. IMPRESSION: No acute intracranial abnormality. -------- FINAL REPORT -------- Dictated By: RAGHAVENDRA CISNEROS Dictated Date: 10/01/2024 16:04 ET Assigned Physician: RAGHAVENDRA CISNEROS Reviewed and Electronically Signed By: RAGHAVENDRA CISNEROS Signed Date: 10/01/2024 16:19 ET Workstation ID: [id number] Transcribed By: Self Edit Transcribed Date: 10/01/2024 16:07 ET us Ashlee Huerta DO IMG CT PROCEDURES Final R esult * Lipid panel with reflex to direct LDL (09/01/2024 5:39 AM EDT) Cholesterol 122 0 - 200 mg/dL LAB CHEMISTRY METHOD 09/01/2024 6:28 AM EDT [facility] Triglycerides 139 0 - 150 mg/dL LAB CHEMISTRY METHOD 09/01/2024 6:28 AM EDT [facility] HDL 51 >=40 mg/dL LAB CHEMISTRY METHOD 09/01/2024 6:28 AM EDT [facility] LDL Calculated 43 0 - 100 mg/dL LAB CHEMISTRY METHOD 09/01/2024 6:28 AM EDT [facility] VLDL Cholesterol Cruzito 27.8 mg/dL LAB CHEMISTRY METHOD 09/01/2024 6:28 AM EDT [facility] Non HDL Chol. (LDL+VLDL) 71 <145 mg/dL LAB CHEMISTRY METHOD 09/01/2024 6:28 AM EDT [facility] Chol/HDL Ratio 2.4 0.0 - 4.4 LAB CHEMISTRY METHOD 09/01/2024 6:28 AM EDT [facility] Blood Venous blood specimen / Unknown Venipuncture / Unknown 09/01/2024 5:39 AM EDT 09/01/2024 5:52 AM EDT us Jamie JEFFERSON LAB BLOOD ORDERABLES Final Res ult [facility] [address] [place] [address], * Hemoglobin A1c (08/31/2024 2:54 PM EDT) Hemoglobin A1C 6.3 <6.5 % LAB CHEMISTRY METHOD 09/01/2024 2:31 PM EDT [facility] Mean Bld Glu Estim. 134 mg/dL LAB CHEMISTRY METHOD 09/01/2024 2:31 PM EDT [facility] Blood Venous blood specimen / Unknown Venipuncture / Unknown 08/31/2024 2:54 PM EDT 08/31/2024 3:07 PM EDT us Jamie JEFFERSON LAB BLOOD ORDERABLES Final Res ult [facility] [address] [place] [address], from Last 3 Months or Most Recently Relevant to Health Maintenance Insurance MEDICAID - [place] Advance Directives * Full Code - Default (Latest Code Status on File) Date Activated Date Inactivated Comments 08/31/2024 6:20 PM 09/05/2024 4:09 PM This is orde r is used when code status has not been discussed with the patient, or code status is otherwise unknown/unconfirmed To update the patient's code status, place a code status order. Do not modify or discontinue any currently active code status orders. Care Teams Dental Biller Relationship Specialty Start Date End Date Carmina Griffith NP [address] [place] [address] PCP - General Nurse Practitioner 05/28/24
--- NOTE | 2024-12-16 10:43 | MHC.OFFVIS ---
Intake Visit Reasons: Probably RCC Intake Note: Patient is present for PROBABLY RCC Urology Medication:NONE Antibiotic Allergy:NONE Blood Thinner:ASPIRIN Automatic Centrifugal Station Operator Required: No Allergies egg Allergy (Unknown, Verified 12/16/24 10:50) Unknown zolpidem (From Ambien) Allergy (Unknown, Verified 12/16/24 10:50) Unknown [facility] Medical History (Updated 12/16/24 @ 11:08 by Calderon Costello MD) Subcutaneous mass of left forearm Stroke Obstructive sleep apnea Myalgia Insomnia IBS (irritable bowel syndrome) Hypoventilation Hypertensive disorder Headache GERD (gastroesophageal reflux disease) Depressive disorder 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
== END 2024-12-16 11:13 | disposition home or self-care (01) ==
LOC: HO.HUSH 10:11
PROVIDERS: PCP Nurse Practitioner Family; Visit Provider Urology
DX: Z13.9 Encounter for screening, unspecified (principal)

== ENCOUNTER → 2024-12-16 10:11 | Outpatient (BNVA) | payer MEDICAID, SELFPAY | PROVIDERS: PCP Nurse Practitioner Family; Visit Provider Urology | DX: N28.1 Cyst of kidney, acquired (principal) | CPT/HCPCS: 81003; 99202 ==